=== PATIENT | female | born 1955 | race Caucasian/White ===

== ENCOUNTER 2020-11-20 13:24 | Outpatient (CLI) | payer MEDICARE, SELFPAY | END 2020-11-20 13:25 | disposition home or self-care (01) | LOC: ANHCOVIDVC 13:24 | PROVIDERS: PCP Nurse Practitioner Family | DX: Z23 Encounter for immunization (principal) | CPT/HCPCS: 0001A; 91300 ==

== ENCOUNTER 2020-11-27 17:45 | Emergency (ER) | payer MEDICARE, SELFPAY ==
[2020-11-27 18:12] VITALS: BP 144/77; PULSE 89; RESP 18; TEMP 36.6; O2SAT 98
--- NOTE | 2020-11-27 18:48 | ED.SKABFB ---
HPI - Skin/Abscess/Foreign Bdy General Chief complaint: Skin/Abscess/Foreign Body Stated complaint: Rash Time Seen by Provider: 11/27/20 18:48 Source: patient and RN notes reviewed Mode of arrival: ambulatory Limitations: no limitations History of Present Illness HPI narrative: 65 year old female who presents to [facility] care with complaints of rash from bottom of tailbone extending to inner buttock folds for the past 2 days. Patient states that she initially applied some Neosporin ointment to area and it didn't seem to be helping so has been applying Calamine which has helped the itching some and has dried rash. Patient admits to using new laundry soap and she states that she had applied some Biofreeze to her lower back wondering if it may of spread down tissue causing rash, denies any other new medications, lotions, foods or any exposure to any other environmental allergen. Patient denies any fevers, chills or sweats. MD complaint: rash Onset (ago): day(s) (2) Tetanus up to date: yes Location: buttocks Quality: pruritic Context: other Associated symptoms: denies other symptoms Treatments prior to arrival: OTC topical medication Related Data Home Medications Medication Instructions Recorded Confirmed lorazepam 0.5 mg PO DAILY 11/27/20 11/27/20 morphine 30 mg PO DIRECTED 11/27/20 11/27/20 ondansetron HCl 4 mg PO DIRECTED 11/27/20 11/27/20 pregabalin 50 mg PO DAILY 11/27/20 11/27/20 sumatriptan succinate 100 mg PO DIRECTED 11/27/20 11/27/20 Allergies Allergy/AdvReac Type Severity Reaction Status Date / Time codeine Allergy Unknown N/V Verified 05/29/19 15:32 NSAIDS (Non-Steroidal Allergy Unknown STOMACH Verified 05/29/19 15:32 Anti-Inflamma PROBLEMS pseudoephedrine Allergy Unknown Unknown Verified 05/29/19 15:32 Review of Systems Review of Systems: Narrative: CONSTITUTIONAL: Denies fever, chills, or sweats. EYES: Denies visual changes, redness, or discharge. ENT: Denies rhinorrhea, congestion, sore throat, or otalgia. CARDIOVASCULAR: Denies chest pain, palpitations, or edema. RESPIRATORY: Denies cough or dyspnea. GASTROINTESTINAL: Denies abdominal pain, nausea, vomiting, or diarrhea. GENITOURINARY: Denies dysuria or hematuria. SKIN: Positive for rash and itching from distal tailbone extending into inner butt cheeks. MUSCULOSKELETAL: Positive for chronic neck pain and lower back, no other joint pain, or myalgia. NEUROLOGIC: no present headache, numbness, or weakness, has history of migraines PSYCHIATRIC: Denies anxiety or depression. All systems reviewed & are unremarkable except as noted in HPI and below PMFSH Past Medical History Medical History (Updated 12/03/20 @ 08:59 by Jeanette Griffin NP) Chronic pain Fibromyalgia Migraines Peripheral neuropathy Surgical History Surgical History (Updated 12/03/20 @ 08:55 by Jeanette Griffin NP) H/O cervical spine surgery History of toe surgery right great toe History of tubal ligation Family History Family History (Updated 11/27/20 @ 19:11 by Jeanette Griffin NP) Father Heart disease Hypertension Diabetes mellitus Social History Social History (Updated 11/27/20 @ 19:11 by Jeanette Griffin NP) Smoking status: Former smoker Alcohol intake: current Alcohol use details: rare Substance use type: opiates Other substance usage details: pain control for cervical pain Living arrangements: with family Gender identity (if verbalized by the patient): Female Comments At time of signature, agree with nursing past medical, surgical, social and family history. There is no relevant family history pertinent to the presenting complaint Exam Narrative: Exam Narrative: GENERAL: Well-appearing, well-nourished, and in no acute distress. HEAD: Normocephalic, atraumatic. EYES: PERRLA and EOMI. ENT: Nares clear, no rhinorrhea or epistaxis. Mucous membranes moist. NECK: Supple.no lymphadenopathy CHEST: Clear to auscultation. No respiratory
== END 2020-11-27 19:16 | disposition home or self-care (01) ==
PROVIDERS: Emergency Provider Registered Nurse
DX: L24.5 Irritant contact dermatitis due to other chemical products (principal); Z87.891 Personal history of nicotine dependence; G62.9 Polyneuropathy, unspecified; M79.7 Fibromyalgia
CPT/HCPCS: 99213; G0463

== ENCOUNTER 2020-12-11 13:39 | Outpatient (CLI) | payer MEDICARE, SELFPAY | END 2020-12-11 13:40 | disposition home or self-care (01) | LOC: ANHCOVIDVC 13:39 | DX: Z23 Encounter for immunization (principal) | CPT/HCPCS: 0002A; 91300 ==

== ENCOUNTER 2021-08-26 15:36 | Emergency (ER) | payer MEDICARE, SELFPAY ==
[2021-08-26 15:47] VITALS: BP 131/82; PULSE 99; RESP 16; TEMP 37.2; O2SAT 99
--- NOTE | 2021-08-26 16:53 | ED.SKABFB ---
HPI - Skin/Abscess/Foreign Bdy General Chief complaint: Skin/Abscess/Foreign Body Stated complaint: Diarrhea/Rash Time Seen by Provider: 08/26/21 16:37 Source: patient and RN notes reviewed Mode of arrival: ambulatory Limitations: no limitations History of Present Illness HPI narrative: Patient presents today complaining of rash to her gluteal cleft for the past 2 weeks. She just had her colostomy reversed and has bowel movements up to 10 times per day that are loose. She has been using Desitin, cornstarch, baby powder, and multiple other interventions without much relief. MD complaint: rash Related Data Home Medications Medication Instructions Recorded Confirmed lorazepam 0.5 mg PO DAILY 11/27/20 08/26/21 cyclobenzaprine 10 mg tablet 10 mg PO BID tablet 05/04/21 08/26/21 ondansetron 8 mg PO TID PRN 08/26/21 08/26/21 pantoprazole 40 mg PO DAILY 08/26/21 08/26/21 sumatriptan succinate 100 mg PO DAILY PRN 08/26/21 08/26/21 Allergies Allergy/AdvReac Type Severity Reaction Status Date / Time codeine Allergy Unknown N/V Verified 08/26/21 16:07 NSAIDS (Non-Steroidal Allergy Unknown STOMACH Verified 08/26/21 16:07 Anti-Inflamma PROBLEMS pseudoephedrine Allergy Unknown Unknown Verified 08/26/21 16:07 Review of Systems Review of Systems: CONSTITUTIONAL: Denies body aches, fever, chills, or sweats. EYES: Denies visual changes, redness, or discharge. ENT: Denies rhinorrhea, congestion, sore throat, or otalgia. CARDIOVASCULAR: Denies chest pain, palpitations, or edema. RESPIRATORY: Denies cough or dyspnea. GASTROINTESTINAL: Denies abdominal pain, nausea, vomiting, or diarrhea. GENITOURINARY: Denies dysuria or hematuria. SKIN: Denies itching, or wounds.+ Rash MUSCULOSKELETAL: Denies back pain, joint pain, or myalgia. NEUROLOGIC: Denies headache, numbness, tingling, or weakness. PSYCH: Denies depression or anxiety. [facility] Past Medical History Medical History Chronic pain Colostomy in place Dialysis patient Fibromyalgia Migraines Peripheral neuropathy Sepsis Surgical History Surgical History H/O cervical spine surgery History of kidney surgery History of partial surgical removal of colon History of toe surgery right great toe History of tubal ligation Family History Family History Father Heart disease Hypertension Diabetes mellitus Social History Social History Smoking status: Former smoker Alcohol intake: current Alcohol use details: rare Substance use type: opiates Other substance usage details: pain control for cervical pain Gender identity (if verbalized by the patient): Female Comments At time of signature, I have reviewed and agree with nursing past medical, surgical, social and family history unless otherwise noted. Please see nursing chart for further information. There is no relevant family history pertinent to the presenting complaint Exam Narrative: GENERAL: Well-appearing, well-nourished, and in no acute distress. HEAD: Normocephalic, atraumatic. EYES: EOMI. No redness or drainage. Conjunctivae normal. ENT: Mucous membranes pink and moist. NECK: Normal AROM. CHEST: No respiratory distress. EXTREMITIES: Normal range of motion. No edema. SKIN: Warm, dry. Capillary refill normal. Normal skin turgor. + gluteal cleft with erythematous papular rash that extends to the perineum. NEURO: No focal deficits. Alert and oriented x3. Gait steady. PSYCH: Normal affect. No signs of depression or anxiety. Course Vital Signs Vital signs: Vital Signs Temperature 99 F 08/26/21 15:47 Pulse Rate 99 08/26/21 15:47 Respiratory Rate 16 08/26/21 15:47 Blood Pressure 131/82 08/26/21 15:47 Pulse Oximetry 99 08/26/21 15:47
== END 2021-08-26 17:04 | disposition home or self-care (01) ==
PROVIDERS: Emergency Provider Nurse Practitioner
DX: B37.89 Other sites of candidiasis (principal); L30.4 Erythema intertrigo; Z87.891 Personal history of nicotine dependence; M79.7 Fibromyalgia; G62.9 Polyneuropathy, unspecified; Z99.2 Dependence on renal dialysis
CPT/HCPCS: 99213; G0463

== ENCOUNTER 2022-07-04 14:34 | Emergency (ER) | payer MEDICARE, SELFPAY ==
[2022-07-04 14:56] VITALS: BP 136/76; PULSE 93; RESP 18; TEMP 37.1; O2SAT 100
--- NOTE | 2022-07-04 16:32 | ED.URI ---
HPI - URI/Sore Throat General Chief Complaint: Upper Respiratory Infection Stated Complaint: cough congestion Time Seen by Provider: 07/04/22 16:32 Source: patient, RN notes reviewed and old records reviewed Mode of arrival: ambulatory Limitations: no limitations History of Present Illness HPI Narrative: 67-YEAR-OLD FEMALE WHO PRESENTS [facility] WITH COMPLAINTS DRY COUGH,CONGESTION, HAS HAD ACUTE HEADACHE SINCE LAST MONDAY WITH LOW-GRADE FEVER NOTED MONDAY. Patient is a dialysis patient related to multiple bowel surgeries and sepsis this past year, going now 2X per week. Patient has been taking Tylenol, Robitussin and cough drops for her symptoms.Patient has been COVID vaccinated and boosted. MD elicited complaint: cough, rhinorrhea, nasal congestion and other (headache) Pertinent past history: other (dialysis patient) Onset (ago): day(s) (5-6 days) Pain scale (0-10): 4 Able to tolerate fluids by mouth: Yes Treatments prior to arrival: acetaminophen and other (Robitussin cough syrup and cough drops) Related Data Home Medications Medication Instructions Recorded Confirmed cyclobenzaprine 10 mg tablet 10 mg PO BID PRN 03/02/22 lorazepam 0.5 mg tablet 0.5 mg PO DAILY PRN 03/02/22 Allergies Allergy/AdvReac Type Severity Reaction Status Date / Time codeine Allergy Unknown N/V Verified 03/02/22 16:13 NSAIDS (Non-Steroidal Allergy Unknown STOMACH Verified 03/02/22 16:13 Anti-Inflamma PROBLEMS pseudoephedrine Allergy Unknown Unknown Verified 03/02/22 16:13 Review of Systems Review of Systems: CONSTITUTIONAL: reports malaise, chills, sweats, low grade fever. EYES: Denies visual changes, redness, or discharge. ENT: Reports rhinorrhea, congestion, sinus pain, no otalgia and sore throat. CARDIOVASCULAR: Denies chest pain, palpitations, or edema. RESPIRATORY: Reports cough.? Denies dyspnea. GASTROINTESTINAL: Denies abdominal pain, nausea, vomiting, diarrhea SKIN: Denies rash or itching. MUSCULOSKELETAL: Denies myalgia. NEUROLOGIC:Reports headache. All systems reviewed & are unremarkable except as noted in HPI and below PMFSH Past Medical History Medical History (Updated 07/11/22 @ 22:14 by Jeanette Griffin NP) Anxiety Chronic pain Dialysis patient Fibromyalgia Migraines Peripheral neuropathy Sepsis Surgical History Surgical History H/O cervical spine surgery History of colostomy reversal History of kidney surgery History of partial surgical removal of colon History of toe surgery right great toe History of tubal ligation Family History Family History Father Heart disease Hypertension Diabetes mellitus Social History Social History (Updated 07/11/22 @ 22:12 by Jeanette Griffin NP) Smoking status: Former smoker Additional smoking assessment comments: quit 30 years ago Alcohol intake: former Alcohol use details: rare Substance use: former Substance use type: opiates Other substance usage details: pain control for cervical pain in past with opiates Living arrangements: with family Gender identity (if verbalized by the patient): Female Comments At time of signature, agree with nursing past medical, surgical, social and family history. There is no relevant family history pertinent to the presenting complaint Exam Narrative: GENERAL:Chronic ill-appearing, well-nourished, and in no acute distress. HEAD: Normocephalic EYES: PERRLA, conjunctivae clear ENT: Nares clear, turbinates edematous and erythematous, clear discharge. Mucous membranes moist. TM pearly munoz with dull light reflex bilaterally; no tragal tenderness. Oropharynx erythematous without lesions. Tonsils not enlarged and without exudate, no drooling, no hoarseness, no trismus, uvula midline.post nasal discharge NECK: Supple. No lymphadenopathy CHEST: Clear to auscultation, breath sounds equal
--- NOTE | 2022-07-04 17:21 | ED.URI ---
HPI - URI/Sore Throat General Chief Complaint: Upper Respiratory Infection Stated Complaint: cough congestion Source: patient, RN notes reviewed and old records reviewed Mode of arrival: ambulatory Limitations: no limitations Related Data Home Medications Medication Instructions Recorded Confirmed cyclobenzaprine 10 mg tablet 10 mg PO BID PRN 03/02/22 lorazepam 0.5 mg tablet 0.5 mg PO DAILY PRN 03/02/22 Allergies Allergy/AdvReac Type Severity Reaction Status Date / Time codeine Allergy Unknown N/V Verified 03/02/22 16:13 NSAIDS (Non-Steroidal Allergy Unknown STOMACH Verified 03/02/22 16:13 Anti-Inflamma PROBLEMS pseudoephedrine Allergy Unknown Unknown Verified 03/02/22 16:13 [facility] Past Medical History Medical History Chronic pain Dialysis patient Fibromyalgia Migraines Peripheral neuropathy Sepsis Surgical History Surgical History H/O cervical spine surgery History of colostomy reversal History of kidney surgery History of partial surgical removal of colon History of toe surgery right great toe History of tubal ligation Family History Family History Father Heart disease Hypertension Diabetes mellitus Social History Social History Smoking status: Former smoker Alcohol intake: current Alcohol use details: rare Substance use type: opiates Other substance usage details: pain control for cervical pain Gender identity (if verbalized by the patient): Female Course Vital Signs Vital signs: Vital Signs Temperature 37.1 C 07/04/22 14:56 Pulse Rate 93 07/04/22 14:56 Respiratory Rate 18 07/04/22 14:56 Blood Pressure 136/76 07/04/22 14:56 Pulse Oximetry 100 07/04/22 14:56 Oxygen Delivery Room Air 07/04/22 14:56 Temperature 37.1 C 07/04/22 14:56 Pulse Rate 93 07/04/22 14:56 Respiratory Rate 18 07/04/22 14:56 Blood Pressure 136/76 07/04/22 14:56 Pulse Oximetry 100 07/04/22 14:56 Oxygen Delivery Room Air 07/04/22 14:56 MDM - URI/Sore Throat Lab Data Labs: Lab Results 07/04/22 Range/Units Unknown POC SARS CoV-2 Ag Negative (Negative) Influenza A Screen Negative Reference Range: Negative Influenza B Screen Negative Reference Range: Negative Discharge Plan Discharge Clinical Impression: Upper respiratory infection, Cough Patient Disposition: Home, Self-Care Condition: Stable Instructions: Antibiotic Form Additional Instructions: INCREASE FLUIDS ESPECIALLY JUICES AND WATER [id number] COUGH AND COLD MEDICINE OF YOUR CHOICE FOR YOUR SYMPTOMS CONTINUE NASAL SPRAY TYLENOL FOR ANY FEVER PAIN ZYRTEC CLARITIN OR KEITH DAILY HEAT TO THE FACE 20-30 MINUTES 4-6 TIMES A DAY FOR PAIN SALT WATER GARGLES, THROAT LOZENGES OR THROAT SPRAYS DESIRED ANTIBIOTIC DIRECTED--FINISHED THE MEDICATION IF YOUR SYMPTOMS PERSIST, CHANGE OR WORSEN SIGNIFICANTLY BEFORE YOU CAN CONTACT YOUR PERSONAL PHYSICIAN THEN PLEASE, WITHOUT DELAY, GO TO THE EMERGENCY DEPARTMENT FOR FURTHER EVALUATION. FOLLOW-UP WITH PCP IN 7-10 DAYS OR SOONER IF NEEDED FOLLOW UP WITH PCP SOON IN REGARDS TO YOUR BLOOD PRESSURE WHICH IS ELEVATED ABOVE THRESHOLD FOR REFERRAL. BLOOD PRESSURE ABOVE 120/80 MAY INDICATE PRE HYPERTENSION BLOOD PRESSURE 136/76 Prescriptions: New amoxicillin 875 mg tablet 875 mg PO Q12H Qty: 20 0RF No Action lorazepam 0.5 mg tablet 0.5 mg PO DAILY PRN cyclobenzaprine 10 mg tablet 10 mg PO BID PRN pregabalin 50 mg capsule 50 mg PO DAILY Qty: 30 0RF sumatriptan succinate 100 mg tablet See Rx Instructions .ROUTE .COMPLEX Qty: 9 5RF Dose Instruction: TAKE 1 TABLET B
== END 2022-07-04 17:29 | disposition home or self-care (01) ==
PROVIDERS: Emergency Provider Registered Nurse
DX: J06.9 Acute upper respiratory infection, unspecified (principal); R05.9 Cough, unspecified; Z20.822 Contact with and (suspected) exposure to COVID-19; Z87.891 Personal history of nicotine dependence; M79.7 Fibromyalgia; G62.9 Polyneuropathy, unspecified
CPT/HCPCS: 87081; 87426; 87804; 87880; 99213; C9803; G0463